=== PATIENT | female | born 1995 | race Caucasian/White ===

== ENCOUNTER 2018-04-26 23:45 | Inpatient (IN) | payer OTHER ==
[~2018-04-26] VITALS: Ht 167.6 cm; Wt 88.0 kg
[2018-04-27 00:26] LABS: AMPHET/METH SCREEN,URINE NEGATIVE (NEGATIVE); BARBITURATE SCREEN, URINE NEGATIVE (NEGATIVE); BENZODIAZEPINES SCREEN,URINE NEGATIVE (NEGATIVE); CANNABINOID SCREEN,URINE POSITIVE (NEGATIVE); COCAINE SCREEN,URINE NEGATIVE (NEGATIVE); METHADONE SCREEN, URINE NEGATIVE (NEGATIVE); OPIATE SCREEN,URINE NEGATIVE (NEGATIVE); PHENCYCLIDINE SCREEN,URINE NEGATIVE (NEGATIVE)
[2018-04-27] MEDS ORDERED: ZOLPIDEM TARTRATE 10 MG TABLET PO PRN (01:15)
[2018-04-27] MEDS ORDERED: MAGNESIUM HYDROXIDE SUSPENSION 30 ML UDCUP PO PRN (01:15)
[2018-04-27] MEDS ORDERED: MAG HYDROX/AL HYDROX/SIMETH ES 30 ML SUSPENSION UDCUP PO PRN ×2 (01:15→05:15)
[2018-04-27] MEDS ORDERED: ACETAMINOPHEN 325 MG TABLET PO PRN (01:15)
[2018-04-27] MEDS ORDERED: HALOPERIDOL 5 MG TABLET PO PRN (01:15)
[2018-04-27] MEDS ORDERED: LORazepam 2 MG TABLET PO PRN (01:15)
[2018-04-27 01:16] LABS: BASOPHILS % (AUTO) 0.3 % (0.0-2.0); EOSINOPHILS % (AUTO) 0.4 % (1.0-6.0); HEMATOCRIT 38.1 % (36-46); HEMOGLOBIN 13.1 g/dL (12.0-16.0); LYMPHOCYTES % (AUTO) 20.3 % (22.0-44.0); MEAN CORPUSCULAR HEMOGLOBIN 30.5 pg (26.0-34.0); MEAN CORPUSCULAR HGB CONC 34.5 G/dL (31.0-37.0); MEAN CORPUSCULAR VOLUME 89 fL (80-100); MONOCYTES # (AUTO) 1.2 K/uL (0.1-1.0); MONOCYTES % (AUTO) 8.3 % (2.0-9.0); NEUTROPHILS # (AUTO) 10.4 K/uL (1.8-7.7); NEUTROPHILS % (AUTO) 70.7 % (40.0-70.0); PLATELET COUNT (AUTO) 273 K/uL (150-450); RED CELL DISTRIBUTION WIDTH 13.1 % (11.5-14.5)
[2018-04-27 01:27] LABS: ANION GAP 10 mmol/L (8-16); CARBON DIOXIDE 26 mmol/L (22-29); CHLORIDE 102 mmol/L (98-107); CREATININE 0.86 mg/dL (0.60-1.30); GLOMERULAR FILTR. RATE CALC > 60 mL/min (>60); GLUCOSE,RANDOM 82 mg/dL (70-110); POTASSIUM 3.4 mmol/L (3.5-5.1); SODIUM SERUM 138 mmol/L (136-145); UREA NITROGEN, BLOOD 15 mg/dL (7-18)
[2018-04-27 01:33] LABS: ALANINE AMINOTRANSFERASE 33 U/L (12-78); ALKALINE PHOSPHATASE 87 U/L (46-116); ASPARTATE AMINOTRANSFERASE 25 U/L (15-37); BILIRUBIN,TOTAL 0.6 mg/dL (0.1-1.0); TOTAL PROTEIN, SERUM 7.7 g/dL (6.4-8.2)
[2018-04-27] MEDS ORDERED: POTASSIUM CHLORIDE 20 MEQ ER TABLET PO ONE (01:45)
[2018-04-27 04:12] VITALS: BP 147/81
[2018-04-27] MEDS ORDERED: PETROLATUM,WHITE 71 GM JELLY TP PRN (05:15)
[2018-04-27] MEDS ORDERED: ALBUTEROL SULFATE HFA 90 MCG/PUFF 8 GM INHALER IH PRN (05:15)
[2018-04-27] MEDS ORDERED: ONDANSETRON HCL 4 MG TABLET PO PRN (05:15)
[2018-04-27] MEDS ORDERED: LOPERAMIDE HCL 2 MG CAPSULE PO PRN (05:15)
[2018-04-27] MEDS ORDERED: DOCUSATE SODIUM 100 MG CAPSULE PO PRN (05:15)
[2018-04-27] MEDS ORDERED: IBUPROFEN 400 MG TABLET PO PRN (05:15)
[2018-04-27] MEDS ORDERED: CloNIDine HCL 0.1 MG TABLET PO PRN (05:15)
[2018-04-27] MEDS ORDERED: PNEUMOCOCCAL VACCINE POLYVALENT 0.5 ML VIAL [PPSV23] IM ONE (06:00)
[2018-04-27 08:22] VITALS: BP 123/59
[2018-04-27] MEDS: SERTRALINE HCL 50 MG TABLET PO SCH (14:33)
[2018-04-27 16:06] VITALS: BP 139/77
[2018-04-28 05:03] VITALS: BP 140/86
[2018-04-28 08:15] VITALS: BP 145/85
[2018-04-28] MEDS: SERTRALINE HCL 50 MG TABLET PO SCH (08:41)
[2018-04-28 14:30] VITALS: BP 131/68
[2018-04-28 16:10] VITALS: BP 135/80
[2018-04-29 07:17] VITALS: BP 122/78
[2018-04-29] MEDS: SERTRALINE HCL 50 MG TABLET PO SCH (08:07)
[2018-04-29 08:44] VITALS: BP 146/79
[2018-04-29 17:02] VITALS: BP 143/75
[2018-04-30 06:35] VITALS: BP 119/73
[2018-04-30 08:01] VITALS: BP 106/62
[2018-04-30] MEDS: SERTRALINE HCL 50 MG TABLET PO SCH (08:50)
[2018-04-30 09:49] LABS: BASOPHILS % (AUTO) 0.5 % (0.0-2.0); EOSINOPHILS % (AUTO) 1.4 % (1.0-6.0); HEMATOCRIT 39.5 % (36-46); HEMOGLOBIN 13.6 g/dL (12.0-16.0); LYMPHOCYTES # (AUTO) 3.4 K/uL (1.0-4.8); LYMPHOCYTES % (AUTO) 37.1 % (22.0-44.0); MEAN CORPUSCULAR HEMOGLOBIN 30.3 pg (26.0-34.0); MEAN CORPUSCULAR HGB CONC 34.4 G/dL (31.0-37.0); MEAN CORPUSCULAR VOLUME 88 fL (80-100); MONOCYTES # (AUTO) 0.9 K/uL (0.1-1.0); MONOCYTES % (AUTO) 9.8 % (2.0-9.0); NEUTROPHILS # (AUTO) 4.6 K/uL (1.8-7.7); NEUTROPHILS % (AUTO) 51.2 % (40.0-70.0); PLATELET COUNT (AUTO) 294 K/uL (150-450); RED BLOOD CELL COUNT(AUTO) 4.48 MIL/uL (4.00-5.20); RED CELL DISTRIBUTION WIDTH 13.2 % (11.5-14.5)
[2018-04-30] MEDS ORDERED: SERT50TA12 PO (12:04)
== END 2018-04-30 12:30 | disposition home or self-care (01) | DRG 885 ==
LOC: EMS 23:47 → B3A 04-27 01:12
PROVIDERS: ADMIT Psychiatry & Neurology Psychiatry; ATTEND Psychiatry & Neurology Psychiatry
DX: F33.3 Major depressive disorder, recurrent, severe with psychotic symptoms (principal); D72.829 Elevated white blood cell count, unspecified; E87.6 Hypokalemia; F12.90 Cannabis use, unspecified, uncomplicated; F41.9 Anxiety disorder, unspecified; G47.00 Insomnia, unspecified; F60.3 Borderline personality disorder; F17.210 Nicotine dependence, cigarettes, uncomplicated; F19.10 Other psychoactive substance abuse, uncomplicated; Z71.51 Drug abuse counseling and surveillance of drug abuser; Z71.6 Tobacco abuse counseling; Z28.21 Immunization not carried out because of patient refusal
CPT/HCPCS: 84132; 99285; 99406; G0480; Q0162

== ENCOUNTER → 2018-08-26 | Outpatient (CLI) | payer OTHER ==
[~2018-08-26] MED LIST: SERT50TA12 PO
== END | disposition home or self-care (01) ==
LOC: RADPV 13:26
PROVIDERS: ATTEND Orthopaedic Surgery
DX: M25.562 Pain in left knee (principal)

== ENCOUNTER 2018-10-31 05:28 | Emergency (ER) | payer OTHER ==
[~2018-10-31] VITALS: Ht 165.1 cm; Wt 205.0 kg
[2018-10-31] MEDS ORDERED: RIZA10TA27 PO (05:38)
[2018-10-31 06:54] VITALS: BP 114/66
== END 2018-10-31 08:00 | disposition home or self-care (01) ==
LOC: EMS 05:29
DX: S00.83XA Contusion of other part of head, initial encounter (principal); G43.909 Migraine, unspecified, not intractable, without status migrainosus; F17.210 Nicotine dependence, cigarettes, uncomplicated; F12.90 Cannabis use, unspecified, uncomplicated; F32.9 Major depressive disorder, single episode, unspecified; W22.8XXA Striking against or struck by other objects, initial encounter; Y93.89 Activity, other specified; Y92.89 Other specified places as the place of occurrence of the external cause; Y99.8 Other external cause status
CPT/HCPCS: 70140